=== PATIENT | female | born 1935 | race Caucasian/White ===

== ENCOUNTER → 2020-01-02 10:17 | Outpatient (CLI) | payer MEDICARE, OTHER, SELFPAY | PROVIDERS: Family Provider Family Medicine; PCP Student in an Organized Health Care Education/Training Program; Referring Provider Student in an Organized Health Care Education/Training Program; Visit Provider Student in an Organized Health Care Education/Training Program | DX: M81.0 Age-related osteoporosis without current pathological fracture (principal); Z78.0 Asymptomatic menopausal state; E07.9 Disorder of thyroid, unspecified; K92.9 Disease of digestive system, unspecified; Z90.722 Acquired absence of ovaries, bilateral | CPT/HCPCS: 77080 ==

== ENCOUNTER → 2020-07-24 13:46 | Outpatient (CLI) | payer MEDICARE, OTHER, SELFPAY ==
--- NOTE | 2020-07-24 | DI.MRI.S_ITS ---
PROCEDURE: MR HEAD/BRAIN WO CON INDICATIONS: Other specified diseases of right inner ear TECHNIQUE: Noncontrast axial T1 spin echo, axial T2 fast spin echo, sagittal and axial FLAIR, coronal T2 fast spin echo, axial gradient echo, axial diffusion and ADC through the brain. Thin section, high-resolution axial T1 with fat sat and axial CISS images obtained through the internal auditory canals. COMPARISON: None. FINDINGS: Image quality: Diagnosis sensitivity for vestibular schwannoma diminished secondary to lack of intravenous contrast administration. Intravenous contrast could not be administered due to failure to obtain intravenous access. CSF Spaces: Basal cisterns are patent. No extra-axial fluid collections. Ventricles are normal in size and shape. Brain: No intracranial masses or hemorrhage. Dior/white matter interface is normal. Brainstem appears normal. There is mild, diffuse cerebral volume loss. There are [id number] periventricular and subcortical white matter chronic microvascular ischemic changes. Diffusion-weighted images demonstrate no acute ischemic insult. No areas of encephalomalacia. No abnormal GRE weighted artifact identified in the brain parenchyma. Normal intravascular flow voids are present. No abnormal mass identified in the cerebellar pontine angles or internal auditory canals. Normal fluid signal within the cochlea, semicircular canal and vessels. Skull and face: Calvarium has normal marrow signal. Orbits appear normal. Sinuses: Small mucous retention cyst versus polyp noted in the right maxillary sinus. mastoids are clear. IMPRESSION: 1. No evidence of vestibular schwannoma. Please note study as diminished diagnostic sensitivity for vestibular schwannoma secondary to absence of gadolinium administration. Contrast could not be administered due to an inability to obtain intravenous access. 2. No acute intracranial disease process. 3. No abnormal intracranial mass or mass effect. 4. Mild, diffuse cerebral volume loss. 5. Mild to moderate periventricular and subcortical white matter chronic microvascular ischemic change. Dictated by: Heavenly Worthy MD, PhD on 07/24/2020 at 16:32 Approved by: Heavenly Worthy MD, PhD on 07/24/2020 at 16:38
== END ==
PROVIDERS: Family Provider Family Medicine; PCP Student in an Organized Health Care Education/Training Program; Referring Provider Student in an Organized Health Care Education/Training Program; Visit Provider Otolaryngology
DX: H83.8X1 Other specified diseases of right inner ear (principal)
CPT/HCPCS: 70551

== ENCOUNTER → 2021-04-13 09:48 | Outpatient (CLI) | payer MEDICARE, OTHER, SELFPAY ==
--- NOTE | 2021-04-13 09:49 | DI.US.S_ITS ---
PROCEDURE: US ABD AORTA ANEURYSM SCREEN INDICATIONS: Thoracic aortic aneurysm, without rupture TECHNIQUE: Real time scanning was performed of the aorta and iliac arteries, with image documentation. COMPARISON: [facility], US, ABDOMEN COMPLETE, 07/03/2015, 11:20. [facility], CT, ANGIO CHEST ABDOMEN PELVIS, 03/08/2018, 11:22. FINDINGS: Aorta: Proximal aortic diameter measures 1.9 cm. Mid-aorta measures 1.6 cm. Distal aortic diameter is 1.8 cm. Iliac arteries: Right common iliac artery measures 0.9 cm. Left common iliac artery measures 0.8 cm. IMPRESSION: Negative for abdominal aortic aneurysm. Dictated by: Armando Horan M.D. on 04/13/2021 at 10:21 Approved by: Armando Horan M.D. on 04/13/2021 at 10:23
== END ==
PROVIDERS: PCP Student in an Organized Health Care Education/Training Program; Referring Provider Student in an Organized Health Care Education/Training Program; Visit Provider Student in an Organized Health Care Education/Training Program
DX: I71.2 Thoracic aortic aneurysm, without rupture (principal)
CPT/HCPCS: 76706

== ENCOUNTER → 2022-04-05 13:28 | Outpatient (CLI) | payer MEDICARE, OTHER, SELFPAY ==
--- NOTE | 2022-04-05 13:29 | DI.RAD.S_ITS ---
PROCEDURE: XR LUMBAR SPINE MIN 4V INDICATIONS: BACK PAIN TECHNIQUE: 5 views of the lumbar spine acquired, including flexion and extension views. COMPARISON: [facility], [place], SPINE LUMB MIN 4VW, 04/04/2014, 9:58. FINDINGS: Bones: 5 nonrib-bearing vertebrae are present. Moderate dextroscoliosis centered at the L1-L2 level. 2 mm retrolisthesis L1-L2 and 3 mm retrolisthesis L2-L3. Multilevel disc degeneration, severe at the L2-L3 level. Moderate L4-L5 and L5-S1 facet joint arthropathy. No vertebral body compression fractures. No suspicious bony lesions. Bones are osteopenic Soft tissues: Overlying bowel gas pattern is normal. No suspicious soft tissue calcifications. Cholecystectomy clips. IMPRESSION: Multilevel spondylosis. Dictated by: Cyril Wick RRJuanito Interpreted: Pierre Coleman MD on 04/05/2022 at 16:47 Transcribed by: KAM on 04/05/2022 at 16:50 Approved by: Pierre Coleman M.D. on 04/05/2022 at 17:45
== END ==
PROVIDERS: PCP Student in an Organized Health Care Education/Training Program; Referring Provider Physical Medicine & Rehabilitation; Visit Provider Physical Medicine & Rehabilitation
DX: M47.816 Spondylosis without myelopathy or radiculopathy, lumbar region (principal); M47.817 Spondylosis without myelopathy or radiculopathy, lumbosacral region; M54.9 Dorsalgia, unspecified; M41.20 Other idiopathic scoliosis, site unspecified; Z95.1 Presence of aortocoronary bypass graft
CPT/HCPCS: 72110; 99215

== ENCOUNTER → 2022-04-09 15:50 | Outpatient (CLI) | payer MEDICARE, OTHER, SELFPAY ==
--- NOTE | 2022-04-09 15:52 | DI.MRI.S_ITS ---
PROCEDURE: MR LUMBAR SPINE WO CON INDICATIONS: Scoliosis chronic progressive axial low back pain TECHNIQUE: Noncontrast sagittal T1 spin echo and T2 fast echo, sagittal STIR, and T2 fast spin echo through the lumbar spine. In cases with scoliosis, additional coronal T2 fast spin echo may be performed. COMPARISON: [facility], , L-SPINE WITHOUT CONTRAST, 08/23/2012, 16:55. FINDINGS: Image quality: Excellent. Alignment and Curvature: Convex right lumbar scoliosis has increased compared to the prior in 2012. Minimal retrolisthesis noted at L2-3 Bone Marrow: Degenerative chronic endplate changes noted particularly at L2-3. No acute vertebral body compression fractures. Spinal Cord: Conus medullaris terminates at the L1 level. Visualized cord demonstrates normal signal and size. Paraspinous Soft Tissues: No paravertebral masses. T12-L1: Normal appearance. L1-L2: Mild disc space narrowing and circumferential disc bulge present with mild central stenosis. Moderate left and no right foraminal stenosis. L2-L3: Disc space narrowing with circumferential disc bulge and hypertrophic facet joints results in moderate central stenosis. Severe left and moderate right foraminal stenosis. L3-L4: Disc height is preserved. Circumferential disc bulge and hypertrophic facet joints results in moderate central stenosis. Mild right and moderate left foraminal stenosis. L4-L5: Disc space narrowing with circumferential disc bulge and hypertrophic facet joints results in mild central stenosis. Moderate right and mild left foraminal stenosis L5-S1: Disc height is preserved. No central or foraminal stenosis IMPRESSION: 1. Multilevel degenerative disc disease and arthropathy associated with dextroscoliosis results in varying degrees of central and foraminal stenosis including moderate central stenosis at L2-3 and L3-4 Approved by: Stephane Campbell M.D. on 04/11/2022 at 8:30
== END ==
PROVIDERS: PCP Student in an Organized Health Care Education/Training Program; Referring Provider Physical Medicine & Rehabilitation; Visit Provider Physical Medicine & Rehabilitation
DX: M47.816 Spondylosis without myelopathy or radiculopathy, lumbar region (principal); M51.36 Other intervertebral disc degeneration, lumbar region; M48.061 Spinal stenosis, lumbar region without neurogenic claudication; M41.86 Other forms of scoliosis, lumbar region
CPT/HCPCS: 72148

== ENCOUNTER → 2022-04-26 11:13 | Outpatient (CLI) | payer MEDICARE, OTHER, SELFPAY ==
[2022-04-26 13:19] LABS: COVID19 -Nasal RAPID Negative (Negative)
== END ==
PROVIDERS: PCP Student in an Organized Health Care Education/Training Program; Visit Provider Physical Medicine & Rehabilitation
DX: Z20.822 Contact with and (suspected) exposure to COVID-19 (principal)
CPT/HCPCS: 87635; C9803

== ENCOUNTER 2022-04-27 12:09 | Outpatient (CLI) | payer MEDICARE, OTHER, SELFPAY ==
[2022-04-27] VITALS (10 sets, daily range): BP systolic 143–228; BP diastolic 74–104; PULSE 65–80; RESP 13–25; TEMP 36.4; O2SAT 93–98
--- NOTE | 2022-04-27 12:12 | DI.RAD.S_ITS ---
PROCEDURE: PAIN L/S FACET INJ/BLK 1ST MAHENDRA COMPARISON: None. INDICATIONS: SPONDYLOSIS FINDINGS: Intraoperative fluoroscopic views of facet joint injection. IMPRESSION: Facet joint injection at L4-5 and L5-S1 bilaterally. Dictated by: Ronan Hayes M.D. on 04/27/2022 at 15:28 Approved by: Ronan Hayes M.D. on 04/27/2022 at 15:29
[2022-04-27] MEDS: MIDAZOLAM 2 MG/2 ML VIAL IV (13:23)
[2022-04-27] MEDS: IOPAMIDOL 15 ML VIAL 3 ML INJ (13:29)
[2022-04-27] MEDS: BUPIVACAINE 0.5% (PF) VIAL 2 ML INJ (13:30)
[2022-04-27] MEDS: BETAMETHASONE 30 MG/5 ML MDV 12 MG INJ (13:30)
[2022-04-27] MEDS: LIDOCAINE 1% 20 ML INJ (13:30)
--- NOTE | 2022-04-27 13:44 | P.PCN_ITS ---
Date/Time/Diagnoses Date of procedure: 04/27/22 Time of procedure: 13:44 Pre-procedure diagnosis: 1. FACET ARTHROPATHY 2. AXIAL LBP 3. MULTILEVEL DDD Post-procedure diagnosis: same Procedure Notes Procedure: 1. FLUOROSCOPICALLY GUIDED CONTRAST CONTROLLED FACET JOINT INJECTIONS BILATERAL L4/5, L5/S1 Indications: Mercedes is referred by Dr. Ribera for treatment of Axial LBP Physician: Molina Schroeder Total Fluoroscopy time (seconds): 15 Total sedation minutes: 16 Complications: none Procedure in detail & Post-procedure care: FINDINGS Multilevel Facet Arthropathy with Clinically significant axial LBP DESCRIPTION OF PROCEDURE Fluoroscopically guided, contrast-controlled bilateral L4/5, L5/S1 facet joint injections. Following review of allergy and review of potential side effects and complications, including, but not necessarily limited to, infection, allergic reaction, local tissue breakdown, stroke, temporary or permanent nerve injury, paralysis, and possible , the patient indicated that the patient understood and agreed to proceed. An informed consent document was signed by the patient, witnessed by a nurse, and placed in the patient's chart. Additionally, other treatment options including medications, modalities, and physical therapy were reviewed with the patient. After review of previous anaesthesic history and IV conscious sedation the patient was deemed safe to proceed with today?s procedure with IV conscious sedation as ASA class II designation. Safety time-out was performed to confirm patient ID, procedure to be performed and site of procedure. IV sedation was accomplished with a combination of 2mg of Versed was administered by the RN after DO order, titrated to patient comfort during the course of the procedure while the patient remained responsive to all verbal commands In the prone position, following sterile prep and drape of the lumbar region, the posterior aspect of the L4/5, L5/S1 facet joints were identified fluoroscopically. The skin was anesthetized via a 25-gauge 1.5inch needle with 1% lidocaine solution into the corresponding facet joints. At this point, a 22- gauge 3.5-inch spinal needle was atraumatically introduced and advanced under fluoroscopic guidance into the corresponding facet joints. Following negative aspiration, injections of approximately 0.2cc of Isovue 200 confirmed interarticular placement without vascular uptake. The identical procedure was then performed at the L4/5, L5/S1 facet joints on the left. Radiological data, including multiple fluoroscopic views of the lumbosacral spine, reveal a spinal needle at the L4/5, L5/S1 facet joints bilaterally. Subsequent views show flow of contrast material both superiorly and inferiorly within the joint space without vascular or intrathecal uptake. At this point, a total of 0.5cc including a mixture of 0.25cc Marcaine and 0.25cc betamethasone was injected without complication into each of the corresponding facet joints. The patient tolerated the procedure well without signs or symptoms of complications prior to transfer to the recovery area continued monitoring without incident. The patient was then transferred to the recovery area where they were observed for an appropriate period of time after the injection. The patient reported a VAS score of 7 prior to the procedure and a post- procedure VAS of 0. POST OP INSTRUCTIONS The patient was provided a Pain Log to continue to record their response to the target-specific procedure prior to follow-up visit with their referring physician. Additionally, specific post-injection care instructions and a contact number to our office were provided if concerns arise regarding possible complications associated with the procedure are suspected.
== END 2022-04-27 14:10 | disposition home or self-care (01) ==
LOC: RAD 12:11
PROVIDERS: PCP Student in an Organized Health Care Education/Training Program; Referring Provider Physical Medicine & Rehabilitation; Visit Provider Physical Medicine & Rehabilitation
DX: M47.816 Spondylosis without myelopathy or radiculopathy, lumbar region (principal); M47.817 Spondylosis without myelopathy or radiculopathy, lumbosacral region; M51.36 Other intervertebral disc degeneration, lumbar region; M51.37 Other intervertebral disc degeneration, lumbosacral region
CPT/HCPCS: 64493; 64494; 99152; J0702; J2250

== ENCOUNTER → 2022-04-29 10:00 | Outpatient (CLI) | payer MEDICARE, OTHER, SELFPAY ==
--- NOTE | 2022-04-29 | DI.NM.S_ITS ---
PROCEDURE: NM ADRIANA PERF SPECT R&S PHARM Rest and pharmacological stress myocardial perfusion SPECT with gated imaging and ejection fraction RADIOPHARMACEUTICAL: 25.3 mCi Tc-99m tetrafosmin IV at rest and 25.3 mCi Tc-99m tetrafosmin IV at peak effect of pharmacological stress. [id number] was performed. INDICATIONS: Occlusion and stenosis of bilateral carotid artery TECHNIQUE: Radiopharmaceutical was injected at peak stress test, and also at rest. SPECT images were obtained. SPECT myocardial perfusion images were displayed in short axis, horizontal long axis, and vertical long axis views. Gated images were reviewed using [employer] software. COMPARISON: None. CARDIAC STRESS: A pharmacologic stress test was performed under the supervision of an attending staff, using an infusion of regadenoson. Hemodynamic data: There is normal blood pressure and heart rate response to pharmacologic stress. Symptoms: The patient denied anginal chest pain. EKG: No diagnostic changes of ischemia; no ectopy. FINDINGS: Raw data: There is good myocardial uptake of radiotracer. No significant motion artifacts. Hikk-kf-ijwzx ratio is 0.39 (normal is less than 0.38 for tetrafosmin tracer). Left ventricle function: Gated images demonstrate normal left ventricular wall thickening. No segmental wall motion abnormalities. No transient ischemic dilation; TID is 0.88 (normal less than 1.3). Left ventricle resting end diastolic volume is 55 mL. Left ventricle stress ejection fraction is >75%; normal range is above 45%. Myocardial perfusion: There is normal distribution of activity in the right and left ventricular myocardium. No fixed or reversible perfusion defects. IMPRESSION: No evidence of pharmacologic induced ischemia or scar. Hyperdynamic left ventricular function. Compared to prior study dated 06/03/2010, no significant change in perfusion imaging. Dictated by: Hiwot Mejía D.O. on 04/30/2022 at 17:43 Approved by: Hiwot Mejía D.O. on 04/30/2022 at 17:46
--- NOTE | 2022-04-30 11:50 | PM.TREADMILL ---
Cardiac Stress Test Report Referral & Results Date Patient Seen: 04/30/22 Time Patient Seen: 11:50 Requesting provider: Erick Lomeli Indication: Carotid artery disease, Coronary artery disease Rest ECG: Sinus bradycardia, Procedure Note: After Lexiscan injection had minimal dyspnea, no chest discomfort After Lexiscan injection, no significant ST changes No ectopy Impression: Normal Lexiscan stress test Nuclear images pending Please note: Actual ECG tracings can be found in the PACS system.
== END ==
PROVIDERS: PCP Student in an Organized Health Care Education/Training Program; Referring Provider Internal Medicine Cardiovascular Disease; Visit Provider Internal Medicine Cardiovascular Disease
DX: I65.23 Occlusion and stenosis of bilateral carotid arteries (principal); I25.10 Atherosclerotic heart disease of native coronary artery without angina pectoris
CPT/HCPCS: 78452; 93017; A9502; J2785

== ENCOUNTER 2022-05-23 17:48 | Observation (INO) | payer MEDICARE, OTHER, SELFPAY ==
[2022-05-23] VITALS (17 sets, daily range): BP systolic 155–229; BP diastolic 74–142; PULSE 63–81; RESP 12–38; TEMP 36.4–36.8; O2SAT 93–94; BMI 27.6; BMI 26.5
--- NOTE | 2022-05-23 17:51 | DI.RAD.S_ITS ---
PROCEDURE: XR CHEST 1V INDICATIONS: chest pain TECHNIQUE: One view of the chest was acquired. COMPARISON: [facility], , CHEST 2 VIEW, 12/19/2014, 10:31. FINDINGS: Surgical changes and devices: Median sternotomy wires are present and appear intact. Stable postsurgical changes of the mediastinum.Surgical clips in right upper quadrant compatible with prior cholecystectomy. Lungs and pleura: Lungs are clear. No pleural effusions or pneumothorax. Mediastinum: Mediastinal contours appear normal. Heart size is normal. Atherosclerotic calcifications of the aortic arch are present. Bones and chest wall: No suspicious bony lesions. Overlying soft tissues appear unremarkable. IMPRESSION: Stable radiographic evaluation of the chest without acute cardiopulmonary abnormalities or focal airspace disease. Dictated by: Melvin Humphries M.D. on 05/23/2022 at 18:37 Approved by: Melvin Humphries M.D. on 05/23/2022 at 18:41
[2022-05-23] MEDS: SODIUM CHLORIDE 0.9% 1,000 ML 150 ML IV (18:25)
[2022-05-23 18:29] LABS: Add Manual Diff / Slide Review NO; Basophils Absolute Auto 100 /uL (0-100); Basophils Percent Auto 0.6 % (0-2); Eosinophils Absolute Auto 200 /uL (0-450); Eosinophils Percent Auto 2.3 % (2-4); Hematocrit 39.2 % (36-46); Hemoglobin 13.4 g/dL (12.0-16.0); Lymphocytes Absolute Auto 2200 /uL (1100-4500); Mean Corpuscular HGB Conc 34.1 % (30-36); Mean Corpuscular Hemoglobin 31.2 PG (26-34); Mean Corpuscular Volume 91.7 fL (80-100); Monocytes Absolute Auto 800 /uL (0-900); Monocytes Percent Auto 8.8 % (3-14); Neutrophils Absolute Auto 5400 /uL (1500-7000); Neutrophils Percent Auto 62.3 % (50-75); Platelet Count 219 X10^3/uL (150-400); Red Blood Cell Count 4.28 X10^6/uL (4.0-5.2); Red Cell Distribution Width 15.5 % (11.6-14.8); White Blood Cell Count 8.6 X10^3/uL (4.5-11.0)
--- NOTE | 2022-05-23 18:34 | ED_ITS ---
HPI - Chest Pain General Chief Complaint: Chest Pain Stated Complaint: High BP Chest Pain Time Seen by Provider: 05/23/22 17:50 Source: patient Mode of arrival: Family Vehicle Limitations: no limitations History of Present Illness HPI narrative: 86-year-old female with history of coronary artery disease, status post 4 way bypass 21 years ago, coronary artery disease, hypertension, hyperlipidemia presents with family in the chief complaint of retrosternal chest pressure for the past 2 hours. She noted her blood pressure to be over 200. Patient had stress test a few weeks ago after having abnormal carotids noted, stress test showed EF greater than 75% without evidence of pharmacologic induced ischemia or scar. No car changer prior from May of 2010. She admits to some retrosternal chest pain that started while at rest last a few hours this morning but then resolved and had another episode just prior to her arrival. She denies any radiation or obvious provocation or palliation of her symptoms. She denies dizziness, weakness or lightheadedness. She has no blurred vision or trouble with speech. She denies any change in her meds or diet. Related Data Home Medications Medication Instructions Recorded Confirmed ACETAMINOPHEN (TYLENOL EXTRA 1,500 mg PO Q4HP PRN Pain (Scale 09/15/12 05/23/22 STRENGTH) Score 4-6) ##0 aspirin 81 mg tablet,delayed 81 mg PO DAILY 04/05/22 05/23/22 release (Adult Low Dose Aspirin) atorvastatin 40 mg tablet 40 mg PO BEDTIME 04/05/22 05/23/22 cholecalciferol (vitamin D3) 50 50 mcg PO DAILY 04/05/22 05/23/22 mcg (2,000 unit) capsule clobetasol 0.05 % topical cream 1 applic topical DAILY 04/05/22 05/23/22 clopidogrel 75 mg tablet (Plavix) 75 mg PO DAILY 04/05/22 05/23/22 gabapentin 400 mg capsule 1,200 mg PO BEDTIME 04/05/22 05/23/22 melatonin 5 mg capsule 5 mg PO .PRN PRN Sleep 04/05/22 05/23/22 metformin 500 mg tablet 500 mg PO DAILY 04/05/22 05/23/22 nitroglycerin 0.4 mg sublingual 0.4 mg sublingual Q5M PRN Angina 04/05/22 05/23/22 tablet omeprazole 40 mg capsule,delayed 40 mg PO DAILY 04/05/22 05/23/22 release carvedilol 12.5 mg tablet 12.5 mg PO BID 05/23/22 05/23/22 levothyroxine 88 mcg tablet 88 mcg PO DAILY 05/23/22 05/23/22 Previous Rx's Medication Instructions Recorded lisinopril 20 mg tablet 20 mg PO BID #60 tabs 05/24/22 Allergies Allergy/AdvReac Type Severity Reaction Status Date / Time No Known Drug Allergies Allergy Verified 05/27/22 21:18 Review of Systems Review of Systems Narrative: GENERAL: Denies chills, fatigue, malaise, fever, sweats. HEENT: Denies sinus pain, ear pain, sore throat, difficulty swallowing, dizziness. RESPIRATORY: Denies dyspnea, cough, wheezing, hemoptysis, sputum. CARDIOVASCULAR: See HPI GASTROINTESTINAL: Denies nausea, vomiting, abdominal pain, diarrhea, constipation, melena. : Denies dysuria, frequency, incontinence, hematuria, urinary retention. MUSCULOSKELETAL: denies weakness, joint pain, or bony pain SKIN: Denies rash, skin lesions, or other NEUROLOGIC: Denies weakness, headache, numbness, change in speech, confusion, seizures, incoordination. PSYCHIATRIC: No concerning psychosocial issues. 12 point review of systems is negative except for those stated above Patient History Medical History CAD (coronary artery disease) Diabetes Facet arthropathy, lumbar HTN (hypertension) Hypothyroidism Scoliosis (and kyphoscoliosis), idiopathic Surgical History S/P CABG x 4 Family History Mother Emphysema lung Grandfather Lymphoma Heart attack Social History household members: children Smoking Status: Former smoker alcohol intake: current Smoking Status: Former smoker tobacco type: cigarettes alcohol intake frequency: 0-2 drinks per day Substance Use Type: does not use Exam Narrative Exam Narrative: GENERAL: 86[] year old patient appears stated age. Well-developed patient, in mild distress. HEAD: Atraumatic. Normocephalic. EYES: Pupils equal round and reactive. Extraocular motions intact. No scleral icterus. No injection or drainage. ENT: Nose without bleeding, purulent drainage. Throat without erythema, tonsillar hypertrophy or exudate. Airway patent. NECK: Trachea midline. Non tender CARDIOVASCULAR: Regular rate and rhythm without murmurs, gallops, or rubs. RESPIRATORY: Clear to auscultation. Breath sounds equal bilaterally. No wheezes, rales, or rhonchi. GASTROINTESTINAL: Abdomen soft, non-tender, nondistended. EXTREMITIES: No edema or joint tenderness. BACK: Nontender without deformity or crepitance. No flank tenderness. NEURO: AOx3. SKIN: No rash or erythema of visible areas Initial Vital Signs Initial Vital Signs: Vital Signs Temperature 98.2 F 05/23/22 17:57 Pulse Rate 81 05/23/22 17:57 Respiratory Rate 05/23/22 17:57 Blood Pressure 213/89 H 05/23/22 17:57 Oxygen Delivery Method 05/23/22 17:57 Scores HEART Score Heart Score history: Moderately Suspicious Heart Score EKG: Non-Specific repolarization disturbance Heart Score Age: > or = 65 years old Heart Score risk factors: > 3 risk factors or hx of atherosclerotic disease Heart Score troponin: < or = to normal limit Heart Score Total: 6 Course Orders Ordered: Discontinued Medications Acetaminophen (Acetaminophen 325 Mg Tablet) 650 mg PO Q6HR PRN PRN Reason: Fever/Mild Pain (1-3) Atorvastatin Calcium (Atorvastatin 20 Mg Tablet) 40 mg PO BEDTIME [facility] Last Admin: 05/23/22 23:40 Dose: 40 mg Documented By: JUAN Carvedilol (Carvedilol 12.5 Mg Tablet) 12.5 mg PO NOW ONE Stop: 05/23/22 19:13 Last Admin: 05/23/22 19:27 Dose: 12.5 mg Documented By: CARLY Carvedilol (Carvedilol 12.5 Mg Tablet) 12.5 mg PO BID [facility] Last Admin: 05/24/22 09:38 Dose: 12.5 mg Documented By: Admin: 05/23/22 23:40 Dose: 12.5 mg Documented By: JUAN Enoxaparin Sodium (Enoxaparin 40 Mg/0.4 Ml Syringe) 40 mg SUBCUT DAILY [facility] Last Admin: 05/24/22 09:38 Dose: Not Given Documented By: AUSTIN Gabapentin (Gabapentin 600 Mg Tablet) 1,200 mg PO BEDTIME [facility] Last Admin: 05/23/22 23:40 Dose: 1,200 mg Documented By: JUAN Sodium Chloride (Normal Saline 0.9%) 1,000 mls @ 150 mls/hr IV CONT [facility] Last Infusion: 05/23/22 22:34 Dose: 0 mls/hr Documented By: Admin: 05/23/22 18:25 Dose: 150 mls/hr Documented By: CARLY Lisinopril (Lisinopril 20 Mg Tablet) 20 mg PO PRN PRN PRN Reason: Blood Pressure - High Lisinopril (Lisinopril 20 Mg Tablet) 20 mg PO DAILY PRN PRN Reason: Hypertension Melatonin (Melatonin 3 Mg Tablet) 6 mg PO BEDTIME [facility] Last Admin: 05/23/22 23:40 Dose: 6 mg Documented By: JUAN Nitroglycerin (Nitroglycerin 0.4 Mg Sl Tab) 0.4 mg SL NOW ONE Stop: 05/23/22 21:51 Last Admin: 05/23/22 21:58 Dose: 0.4 mg Documented By: CARLY Sodium Chloride (Sodium Chloride 0.9% Flush) 10 ml IV PRN PRN PRN Reason: Flush Sodium Chloride (Sodium Chloride 0.9% Flush) 10 ml IV BID [facility] Last Admin: 05/24/22 09:38 Dose: Not Given Documented By: AUSTIN Vital Signs Vital signs: Vital Signs - 8 hr 05/23/22 18:15 05/23/22 18:15 05/23/22 18:30 Pulse Rate 79 Respiratory Rate 29 H Blood Pressure 229/114 H 223/109 H Pulse Oximetry 94 Oxygen Delivery Method 05/23/22 18:30 05/23/22 18:52 05/23/22 18:52 Pulse Rate 79 76 Respiratory Rate 16 Blood Pressure 225/102 H Pulse Oximetry 93 93 Oxygen Delivery Method 05/23/22 19:00 05/23/22 19:00 05/23/22 19:30 Pulse Rate 68 71 Respiratory Rate 22 24 Blood Pressure 213/89 H Pulse Oximetry 93 93 Oxygen Delivery Method 05/23/22 19:31 05/23/22 19:31 05/23/22 20:00 Pulse Rate 66 Respiratory Rate 20 Blood Pressure 210/142 H 216/97 H Pulse Oximetry 93 Oxygen Delivery Method 05/23/22 20:00 05/23/22 20:30 05/23/22 21:00 Pulse Rate 68 63 67 Respiratory Rate 38 H 21 12 Blood Pressure Pulse Oximetry 94 94 94 Oxygen Delivery Method Room Air 05/23/22 21:47 05/23/22 21:48 05/23/22 21:48 Pulse Rate 65 63 Respiratory Rate 15 16 Blood Pressure 222/96 H Pulse Oximetry Oxygen Delivery Method 05/23/22 22:00 05/23/22 22:00 Pulse Rate 72 Respiratory Rate 15 Blood Pressure 192/91 H Pulse Oximetry Oxygen Delivery Method MDM - Chest Pain Lab Data Result diagrams: 05/23/22 18:19 05/23/22 18:19 Labs: Lab Results 05/23/22 05/23/22 05/23/22 Range/Units 18:19 18:19 18:19 WBC 8.6 (4.5-11.0) X10^3/uL RBC 4.28 (4.0-5.2) X10^6/uL Hgb 13.4 (12.0-16.0) g/dL Hct 39.2 (36-46) % MCV 91.7 (80-100) fL MCH 31.2 (26-34) PG MCHC 34.1 (30-36) % RDW 15.5 H (11.6-14.8) % Plt Count 219 (150-400) X10^3/uL Neut % (Auto) 62.3 (50-75) % Lymph % (Auto) 26.0 (25-40) % [place] % (Auto) 8.8 (3-14) % Eos % (Auto) 2.3 (2-4) % Baso % (Auto) 0.6 (0-2) % Neut # (Auto) 5400 (4899-9880) /uL Lymph # (Auto) 2200 (5271-9287) /uL [place] # (Auto) 800 (0-900) /uL Eos # (Auto) 200 (0-450) /uL Baso # (Auto) 100 (0-100) /uL Sodium 137 (137-145) mmol/L Potassium 4.7 (3.4-5.1) mmol/L Chloride 103 (98-107) mmol/L Carbon Dioxide 28 (22-32) mmol/L BUN 12 (7-17) mg/dL Creatinine 0.70 (0.52-1.04) mg/dL Estimated GFR > 60 (>60) mL/min BUN/Creatinine Ratio 17.1 (6-22) Glucose 95 (80-110) mg/dL Calcium 9.1 (8.4-10.2) mg/dL Total Bilirubin 1.3 (0.2-1.3) mg/dL AST 31 (14-36) IU/L ALT 14 (<35) IU/L Alkaline Phosphatase 99 (38-126) U/L Total Creatine Kinase 39 (30-135) U/L CK-MB (CK-2) TNP CK-MB (CK-2) Rel Index TNP Troponin I < 0.012 (0.01-0.034) ng/mL NT-Pro-B Natriuret Pep 471 H (<450) pg/mL Total Protein 6.9 (6.3-8.2) g/dL Albumin 4.0 (3.5-5.0) g/dL Globulin 2.9 (1.7-4.1) g/dL Albumin/Globulin Ratio 1.4 (1.0-2.8) Lipase 108 (23-300) U/L Procalcitonin 0.04 (<0.5) ng/mL SARS-CoV-2 (PCR) (Negative) 05/23/22 05/23/22 Range/Units 20:35 21:47 WBC (4.5-11.0) X10^3/uL RBC (4.0-5.2) X10^6/uL Hgb (12.0-16.0) g/dL Hct (36-46) % MCV (80-100) fL MCH (26-34) PG MCHC (30-36) % RDW (11.6-14.8) % Plt Count (150-400) X10^3/uL Neut % (Auto) (50-75) % Lymph % (Auto) (25-40) % [place] % (Auto) (3-14) % Eos % (Auto) (2-4) % Baso % (Auto) (0-2) % Neut # (Auto) (6749-0917) /uL Lymph # (Auto) (2628-0713) /uL [place] # (Auto) (0-900) /uL Eos # (Auto) (0-450) /uL Baso # (Auto) (0-100) /uL Sodium (137-145) mmol/L Potassium (3.4-5.1) mmol/L Chloride (98-107) mmol/L Carbon Dioxide (22-32) mmol/L BUN (7-17) mg/dL Creatinine (0.52-1.04) mg/dL Estimated GFR (>60) mL/min BUN/Creatinine Ratio (6-22) Glucose (80-110) mg/dL Calcium (8.4-10.2) mg/dL Total Bilirubin (0.2-1.3) mg/dL AST (14-36) IU/L ALT (<35) IU/L Alkaline Phosphatase (38-126) U/L Total Creatine Kinase 41 (30-135) U/L CK-MB (CK-2) TNP CK-MB (CK-2) Rel Index TNP Troponin I 0.033 (0.01-0.034) ng/mL NT-Pro-B Natriuret Pep (<450) pg/mL Total Protein (6.3-8.2) g/dL Albumin (3.5-5.0) g/dL Globulin (1.7-4.1) g/dL Albumin/Globulin Ratio (1.0-2.8) Lipase (23-300) U/L Procalcitonin (<0.5) ng/mL SARS-CoV-2 (PCR) Negative (Negative) Imaging Data Chest x-ray: Radiologist's Impression: [address] [address] XRay Report Signed Patient: Mercedes Sanders MR#: [id number] : 1935 Acct:[id number] Age/Sex: 86 / F Date of Service: 05/23/22 Loc: ED Accession Number: [id number] ?? Procedure: XR chest 1V Ordering Provider: Mark Lynne D.O. PROCEDURE:? XR CHEST 1V ? INDICATIONS:? chest pain ? TECHNIQUE:? One view of the chest was acquired.? ? COMPARISON:? [facility], , CHEST 2 VIEW, 12/19/2014, 10:31. ? FINDINGS:? ? Surgical changes and devices: ? Median sternotomy wires are present and appear i ntact.? Stable postsurgical changes of the mediastinum.Surgical clips in right upper quadrant compatible with prior cholecystectomy. ? Lungs and pleura:? Lungs are clear.? No pleural effusions or pneumothorax.? ? Mediastinum:? Mediastinal contours appear normal.? Heart size is normal.? Atherosclerotic calcifications of the aortic arch are present. ? Bones and chest wall:? No suspicious bony lesions.? Overlying soft tissues appear unremarkable.? ? IMPRESSION:? Stable radiographic evaluation of the chest without acute cardiopulmonary abnormalities or focal airspace disease. ? ? ? Dictated by: Melvin Humphries M.D. on 05/23/2022 at 18:37 ? ? Approved by: Melvin Humphries M.D. on 05/23/2022 at 18:41 ? MDM Narrative Medical decision making narrative: Patient with known cardiac history presents with a few episodes of retrosternal chest pressure without obvious provocation, palliation or radiation. The 2nd episode was just prior to her arrival and though she was essentially symptom free for the duration of her visit, repeat troponin has subtly increased, her heart score is 6 and she is inappropriate for DC, she will need hospitalization for trending of enzymes and stablilization of her condition Discharge Plan Departure Patient Disposition: Admitted as Observation Clinical Impression: Chest pain Admit Date/Time: 05/23/22 22:43 Admit Provider: Tha Renee
[2022-05-23 18:43] LABS: Alanine Aminotransferase 14 IU/L (<35); Albumin Globulin Ratio 1.4 (1.0-2.8); Alkaline Phosphatase 99 U/L (38-126); Aspartate Aminotransferase 31 IU/L (14-36); BUN Creatinine Ratio 17.1 (6-22); Bilirubin Total 1.3 mg/dL (0.2-1.3); Blood Urea Nitrogen 12 mg/dL (7-17); Calcium 9.1 mg/dL (8.4-10.2); Carbon Dioxide 28 mmol/L (22-32); Chloride 103 mmol/L (98-107); Creatine Kinase 39 U/L (30-135); Estimated Glomerular Filt Rate > 60 mL/min (>60); Globulin 2.9 g/dL (1.7-4.1); Glucose 95 mg/dL (80-110); HEMOLYSIS 44 (0-50); Lipase 108 U/L (23-300); Potassium 4.7 mmol/L (3.4-5.1); Sodium 137 mmol/L (137-145); Total Protein 6.9 g/dL (6.3-8.2)
[2022-05-23 18:55] LABS: NT-proBNP (BNP-Adult 18+) 471 pg/mL (<450); Troponin I < 0.012 ng/mL (0.01-0.034)
[2022-05-23 18:59] LABS: Procalcitonin 0.04 ng/mL (<0.5)
[2022-05-23] MEDS: carvediloL 12.5 MG TABLET PO ×2 (19:27→23:40)
[2022-05-23 20:53] LABS: Creatine Kinase 41 U/L (30-135)
[2022-05-23 21:06] LABS: Troponin I 0.033 ng/mL (0.01-0.034)
[2022-05-23] MEDS: NITROGLYCERIN 0.4 MG SL TAB SL (21:58)
[2022-05-23 22:14] LABS: COVID19 -Nasal RAPID Negative (Negative)
--- NOTE | 2022-05-23 23:27 | PC.ADMIT ---
Addendum entered by Sneha Romano R.N. 05/23/22 23:34: Fall risk score is moderate and bed alarm is activated. Original Note: [id number] View [address] Admission Note: The patient,Mercedes Sanders,86 y/o, was given written information regarding hospital policies, unit procedures and contact persons. Patient's smoking status: Former smoker. Vital Signs - 8 hr 05/23/22 17:57 05/23/22 18:01 05/23/22 18:05 Temperature 98.2 F Pulse Rate 81 80 81 Respiratory Rate 22 31 H 31 H Blood Pressure 213/89 H Pulse Oximetry 94 93 Oxygen Delivery Method Room Air 05/23/22 18:05 05/23/22 18:15 05/23/22 18:15 Temperature Pulse Rate 79 Respiratory Rate 29 H Blood Pressure 213/129 H 229/114 H Pulse Oximetry 94 Oxygen Delivery Method 05/23/22 18:30 05/23/22 18:30 05/23/22 18:52 Temperature Pulse Rate 79 76 Respiratory Rate 16 Blood Pressure 223/109 H Pulse Oximetry 93 93 Oxygen Delivery Method 05/23/22 18:52 05/23/22 19:00 05/23/22 19:00 Temperature Pulse Rate 68 Respiratory Rate 22 Blood Pressure 225/102 H 213/89 H Pulse Oximetry 93 Oxygen Delivery Method 05/23/22 19:30 05/23/22 19:31 05/23/22 19:31 Temperature Pulse Rate 71 66 Respiratory Rate 24 20 Blood Pressure 210/142 H Pulse Oximetry 93 93 Oxygen Delivery Method 05/23/22 20:00 05/23/22 20:00 05/23/22 20:30 Temperature Pulse Rate 68 63 Respiratory Rate 38 H 21 Blood Pressure 216/97 H Pulse Oximetry 94 94 Oxygen Delivery Method 05/23/22 21:00 05/23/22 21:47 05/23/22 21:48 Temperature Pulse Rate 67 65 63 Respiratory Rate 12 15 16 Blood Pressure Pulse Oximetry 94 Oxygen Delivery Method Room Air 05/23/22 21:48 05/23/22 22:00 05/23/22 22:00 Temperature Pulse Rate 72 Respiratory Rate 15 Blood Pressure 222/96 H 192/91 H Pulse Oximetry Oxygen Delivery Method 05/23/22 22:49 05/23/22 23:24 Temperature 97.5 F L Pulse Rate 65 Respiratory Rate 17 Blood Pressure 178/86 H Pulse Oximetry 94 Oxygen Delivery Method Room Air Patient admitted to room 216 at 2257 from ER. Is alert and oriented. Breath sounds CTA with RA sat of 94%. HRR w/telemetry reading of SR. BP elevated at 178/84 which is improved from earlier readings in ER. Denies any chest pain and/or SOB. Denies nausea. States she had multiple stools today which is her normal as has IBS. Denies any dysuria but states she does have urinary urgency. Is able to move herself in bed. Denies weakness or dizziness but states she sits at edge of bed before standing to get up; instructed to call for assistance while in hospital and verbalizes understanding. Fall risk score is low. Oriented to bed controls and call light use.
[2022-05-23] MEDS: GABAPENTIN 600 MG TABLET 1200 MG PO (23:40)
[2022-05-23] MEDS: ATORVASTATIN 20 MG TABLET 40 MG PO (23:40)
[2022-05-23] MEDS: MELATONIN 3 MG TABLET 6 MG PO (23:40)
[2022-05-24 02:16] VITALS: BP 142/73; PULSE 63; RESP 17; TEMP 36.4; O2SAT 92
[2022-05-24 03:21] LABS: Troponin I 0.045 ng/mL (0.01-0.034)
[2022-05-24 05:58] VITALS: BP 158/81; PULSE 63; RESP 17; TEMP 36.4; O2SAT 94
[2022-05-24 07:45] VITALS: BP 149/69; PULSE 62; RESP 16; TEMP 36.1; O2SAT 93
--- NOTE | 2022-05-24 08:03 | PM.HP.1 ---
History of Present Illness History of Present Illness Date Patient Seen: 05/24/22 Time Patient Seen: 08:03 Chief complaint: High BP Chest Pain Narrative: 86-year-old female history of coronary artery disease hypertension hyperlipidemia diabetes hypothyroidism patient says that over the last 2-3 weeks he has had pretty significant high blood pressure. Up into the 200s. She has just been ignoring it could she does not feel too bad with it. She has also had some episodes of low blood pressure but that was quite sometime ago. Yesterday afternoon she began to have some chest tightness. It lasted for just a few minutes and then went away and then it happened again. At that point she became concerned and came to the emergency room. Chest tightness was retrosternal was not associated with nausea dizziness palpitations or lightheadedness. She says that she has been meeting with her emergency veterinary technician regularly she underwent cardiac bypass surgery a number of years ago. Her emergency veterinary technician Dr. Slick pantoja. Recently had a stress test not because she was having any chest pain just because it been many years since she had had any evaluation and also they found some concerns about carotid artery stenosis. She is still undergoing that workup. Her stress test results are in the computer read as normal. This morning patient is feeling better. Patient's blood pressure in the emergency room was 225 over 114 and 219/110. Patient was restarted on her blood pressure medication last evening. We added an additional lisinopril her blood pressure this morning is 150/881. Patient has no further episodes of chest discomfort since arrival to the emergency department. I have reviewed her recent laboratory tests medications and past medical history. Her 1st set of cardiac enzymes x2 was negative. Her next set came back mildly elevated. Patient History Medical History CAD (coronary artery disease) Diabetes Facet arthropathy, lumbar HTN (hypertension) Hypothyroidism Scoliosis (and kyphoscoliosis), idiopathic Surgical History S/P CABG x 4 Family & Social History Family History Mother Emphysema lung Grandfather Lymphoma Heart attack Social History: household members children Prior Living Arrangements House Safety & Behavioral: Feels Safe in Current Yes Environment Been Physically Hurt or No Threatened By a Person Tobacco & Substance use: Smoking Status Former smoker alcohol intake current alcohol intake frequency 0-2 drinks per day Substance Use Type does not use Meds Home Medications and Allergies Home Medications Medication Instructions Recorded Confirmed Type ACETAMINOPHEN (TYLENOL EXTRA 1,500 mg PO Q4HP PRN Pain (Scale 09/15/12 05/23/22 History STRENGTH) Score 4-6) ##0 aspirin 81 mg tablet,delayed 81 mg PO DAILY 04/05/22 05/23/22 History release (Adult Low Dose Aspirin) atorvastatin 40 mg tablet 40 mg PO BEDTIME 04/05/22 05/23/22 History cholecalciferol (vitamin D3) 50 50 mcg PO DAILY 04/05/22 05/23/22 History mcg (2,000 unit) capsule clobetasol 0.05 % topical cream 1 applic topical DAILY 04/05/22 05/23/22 History clopidogrel 75 mg tablet (Plavix) 75 mg PO DAILY 04/05/22 05/23/22 History gabapentin 400 mg capsule 1,200 mg PO BEDTIME 04/05/22 05/23/22 History melatonin 5 mg capsule 5 mg PO .PRN PRN Sleep 04/05/22 05/23/22 History metformin 500 mg tablet 500 mg PO DAILY 04/05/22 05/23/22 History nitroglycerin 0.4 mg sublingual 0.4 mg sublingual Q5M PRN Angina 04/05/22 05/23/22 History tablet omeprazole 40 mg capsule,delayed 40 mg PO DAILY 04/05/22 05/23/22 History release carvedilol 12.5 mg tablet 12.5 mg PO BID 05/23/22 05/23/22 History levothyroxine 88 mcg tablet 88 mcg PO DAILY 05/23/22 05/23/22 History Allergies Allergy/AdvReac Type Severity Reaction Status Date / Time No Known Drug Allergies Allergy Unverified 04/05/22 14:38 Exam Vital Signs (past 8 hours): - 05/24/22 02:16 05/24/22 05:58 Temperature 97.5 F L 97.6 F Pulse Rate 63 63 Respiratory Rate 17 17 Blood Pressure 142/73 H 158/81 H Pulse Oximetry 92 94 Oxygen Delivery Method Room Air Narrative Exam Narrative: Gen.: Alert and oriented x3 no apparent distress. HEENT: NCAT PERRLA tympanic membranes are clear nares are patent oral mucosa is moist no tonsillar hypertrophy neck is supple without lymphadenopathy no thyroid enlargement. Cardio: S1-S2 regular rate and rhythm no murmurs appreciated. Respiratory: Lungs are clear to auscultation no wheezes or crackles normal respiratory effort. Abdomen: Soft nontender no rebound or guarding no liver spleen enlargement no appreciable hernias Extremities: Full range of motion no appreciable weakness no cyanosis or edema. Neurologic: Grossly intact. Objective Labs Result Diagrams: 05/23/22 18:19 05/23/22 18:19 Labs: Laboratory Results - last 24 hr 05/23/22 05/23/22 05/23/22 18:19 18:19 18:19 WBC 8.6 RBC 4.28 Hgb 13.4 Hct 39.2 MCV 91.7 MCH 31.2 MCHC 34.1 RDW 15.5 H Plt Count 219 Neut % (Auto) 62.3 Lymph % (Auto) 26.0 [place] % (Auto) 8.8 Eos % (Auto) 2.3 Baso % (Auto) 0.6 Neut # (Auto) 5400 Lymph # (Auto) 2200 [place] # (Auto) 800 Eos # (Auto) 200 Baso # (Auto) 100 Sodium 137 Potassium 4.7 Chloride 103 Carbon Dioxide 28 BUN 12 Creatinine 0.70 Estimated GFR > 60 BUN/Creatinine Ratio 17.1 Glucose 95 Calcium 9.1 Total Bilirubin 1.3 AST 31 ALT 14 Alkaline Phosphatase 99 Total Creatine Kinase 39 CK-MB (CK-2) TNP CK-MB (CK-2) Rel Index TNP Troponin I < 0.012 NT-Pro-B Natriuret Pep 471 H Total Protein 6.9 Albumin 4.0 Globulin 2.9 Albumin/Globulin Ratio 1.4 Lipase 108 Procalcitonin 0.04 SARS-CoV-2 (PCR) 05/23/22 05/23/22 05/24/22 20:35 21:47 02:50 WBC RBC Hgb Hct MCV MCH MCHC RDW Plt Count Neut % (Auto) Lymph % (Auto) [place] % (Auto) Eos % (Auto) Baso % (Auto) Neut # (Auto) Lymph # (Auto) [place] # (Auto) Eos # (Auto) Baso # (Auto) Sodium Potassium Chloride Carbon Dioxide BUN Creatinine Estimated GFR BUN/Creatinine Ratio Glucose Calcium Total Bilirubin AST ALT Alkaline Phosphatase Total Creatine Kinase 41 CK-MB (CK-2) TNP CK-MB (CK-2) Rel Index TNP Troponin I 0.033 0.045 H NT-Pro-B Natriuret Pep Total Protein Albumin Globulin Albumin/Globulin Ratio Lipase Procalcitonin SARS-CoV-2 (PCR) Negative Assessment & Plan Assessment and plan (1) HTN (hypertension): Qualifiers: Hypertension type: unspecified Qualified Code(s): I10 - Essential (primary) hypertension Status: Acute (2) CAD (coronary artery disease): Status: Acute (3) Chest pain: Status: Acute Plan Chest pain Coronary artery disease Hypertensive urgency Type 2 myocardial infarction Diabetes type 2 86-year-old female who is admitted to the hospital for evaluation after significant elevation of blood pressure and chest pressure. Patient recently had a normal cardiac evaluation. I think patient's cardiac enzyme is mildly elevated due to her significant elevation of her blood pressure consistent more with a troponin leak and a type 2 myocardial infarction and underlying coronary artery disease. Patient has had no further pain since improvement of her blood pressure. Discussed with patient further treatment of her blood pressure and monitoring of her heart. Since she has recently met with her emergency veterinary technician and is on appropriate medication and I think her troponins are mildly elevated because of her significant blood pressure and this is not underlying coronary artery disease we need blood better blood pressure management. Which we have done so far. Will do 1 more set of cardiac enzymes to make sure that the her cardiac troponin is not elevating significantly. Her EKG shows no significant changes. We will go ahead and add in lisinopril to her current blood pressure medication regiment which is artery help stabilize her blood pressure improved them significantly and at that point if her cardiac enzymes are trending down will go ahead have her follow-up with her regular doctor and her emergency veterinary technician here in the next week or so Time Spent With Patient Critical Care time: I spent a total of [] minutes of critical care time on this patient's care today; this time is exclusive of procedural time. Quality VTE Deep Vein Thrombosis/Pulmonary Embolism Present on Admission: No
[2022-05-24 09:11] LABS: Creatine Kinase 42 U/L (30-135)
[2022-05-24 09:38] VITALS: BP 149/50
[2022-05-24] MEDS: carvediloL 12.5 MG TABLET PO (09:38)
--- NOTE | 2022-05-24 11:14 | PC.NURSE ---
Pt IV has been removed and son is at the bedside. Tele has been removed. Went over d/c instructions with Pt and family member-discussed d/c meds, time of last dose, reviewed stroke education, discussed getting up slowly from bed or chair and checking blood pressure several times throughout the day since she is starting Lisinopril. Discussed some of the potential side effects and Karen Pharmacist will be coming up to provide Pt education as well. Pt already has a follow up appointment scheduled with Dr. Esteves on the . Pt and son denied further questions and she will be taken out via w/c by VIDEOTAPE RECORDING ENGINEER to POV with son and all belongings.
--- NOTE | 2022-05-24 12:13 | CM.DANOTE ---
Patient is an 86 yo female who was admitted on 05/23/22 for High BP and Chest Pain. Pt has [facility] and [facility] [employer] and her PCP is Dr. Shannon Ribera and now Dr. Esteves. EMR was reviewed. Per MD, pt has remained stable this morning and pending trops pt can d/c home later today. Per RN, pt's labs stable and discharge instructions given and son was present and provided transport home with no concerns or needs at this time. Plan: Patient discharged home via son POV and outpt f/u appointment already scheduled for Dr. Esteves. No SW needs at this time. ARMINDA Guo Discharge Planning/Care Management CM Discharge Assessment Start: 05/24/22 12:12 Freq: Status: Active Protocol: Document 05/24/22 12:12 BF (Rec: 05/24/22 12:13 BF [id number]) Discharge Planning Assessment Assigned Government Property Inspector ARMINDA Samuel DPOA/Assigned Designee Name spouse Advance Directives? No Advance Directives on File No History Provided By Patient,Family Member,Medical Record Has Patient been admitted in last 30 No days? Prior Living Arrangements House Household Members children Type of transporation used prior to Relies on Others admit Independent with ADL's Yes Is patient alert and oriented? Yes Caregiver for Another No Discharge Plan Home Transportation Arrangement son to provide transport home Referrals Initiated None needed Whiteboard Updated in Patient Room with Yes name and ext. # of Government Property Inspector Review Status In Process Please Provide Date Initial DC 05/24/22 Assessment Was Performed Next Review Type Continued Stay Review
== END 2022-05-24 11:26 | disposition home or self-care (01) ==
LOC: ED 21:59 → AC 22:44
PROVIDERS: Admitting Provider Family Medicine; Emergency Provider Emergency Medicine; PCP Student in an Organized Health Care Education/Training Program; Referring Provider Emergency Medicine; Visit Provider Family Medicine
DX: R07.9 Chest pain, unspecified (principal); I10 Essential (primary) hypertension; I25.10 Atherosclerotic heart disease of native coronary artery without angina pectoris; E78.5 Hyperlipidemia, unspecified; Z95.1 Presence of aortocoronary bypass graft; R77.8 Other specified abnormalities of plasma proteins; E11.9 Type 2 diabetes mellitus without complications; Z79.84 Long term (current) use of oral hypoglycemic drugs; Z20.822 Contact with and (suspected) exposure to COVID-19
CPT/HCPCS: 36415; 71045; 80053; 82550; 82962; 83690; 83880; 84145; 84484; 85025; 87635; 93005; 93010; 96360; 96361; 99217; 99219; 99284; C9803; G0378

== ENCOUNTER 2022-05-27 21:14 | Emergency (ER) | payer MEDICARE, OTHER, SELFPAY ==
[2022-05-23 22:48] VITALS: BMI 26.5
[2022-05-27 21:18] VITALS: BP 229/106; PULSE 67; RESP 16; TEMP 36.7; O2SAT 97; BMI 26.0
--- NOTE | 2022-05-27 21:28 | DI.RAD.S_ITS ---
PROCEDURE: XR CHEST 1V INDICATIONS: chest pain TECHNIQUE: One view of the chest was acquired. COMPARISON: [facility], CR, XR CHEST 1V, 05/23/2022, 18:22. FINDINGS: Surgical changes and devices: Postsurgical changes redemonstrated in the mediastinum. Lungs and pleura: Lungs are clear without acute consolidation. No pleural effusions or pneumothorax. Mediastinum: Mediastinal contours appear normal. Heart size is normal. Bones and chest wall: No suspicious bony lesions. Overlying soft tissues appear unremarkable. IMPRESSION: 1. No acute cardiopulmonary disease. Dictated by: Francisco Carbajal M.D. on 05/28/2022 at 0:06 Approved by: Francisco Carbajal M.D. on 05/28/2022 at 0:11
[2022-05-27 22:28] LABS: Add Manual Diff / Slide Review NO; Basophils Absolute Auto 100 /uL (0-100); Basophils Percent Auto 0.7 % (0-2); Eosinophils Absolute Auto 300 /uL (0-450); Hematocrit 40.1 % (36-46); Hemoglobin 13.3 g/dL (12.0-16.0); Lymphocytes Absolute Auto 2800 /uL (1100-4500); Lymphocytes Percent Auto 31.5 % (25-40); Mean Corpuscular HGB Conc 33.2 % (30-36); Mean Corpuscular Hemoglobin 30.9 PG (26-34); Mean Corpuscular Volume 93.3 fL (80-100); Monocytes Absolute Auto 900 /uL (0-900); Monocytes Percent Auto 10.2 % (3-14); Neutrophils Absolute Auto 4900 /uL (1500-7000); Neutrophils Percent Auto 54.6 % (50-75); Platelet Count 233 X10^3/uL (150-400); Red Cell Distribution Width 15.1 % (11.6-14.8); White Blood Cell Count 8.9 X10^3/uL (4.5-11.0)
[2022-05-27 22:30] VITALS: BP 199/92; PULSE 62; RESP 20; O2SAT 99
[2022-05-27 22:36] LABS: Alanine Aminotransferase 14 IU/L (<35); Albumin 3.9 g/dL (3.5-5.0); Albumin Globulin Ratio 1.4 (1.0-2.8); Alkaline Phosphatase 98 U/L (38-126); Aspartate Aminotransferase 34 IU/L (14-36); BUN Creatinine Ratio 16.7 (6-22); Bilirubin Total 1.2 mg/dL (0.2-1.3); Blood Urea Nitrogen 12 mg/dL (7-17); Calcium 8.7 mg/dL (8.4-10.2); Carbon Dioxide 25 mmol/L (22-32); Chloride 101 mmol/L (98-107); Creatine Kinase 39 U/L (30-135); Estimated Glomerular Filt Rate > 60 mL/min (>60); Globulin 2.8 g/dL (1.7-4.1); Glucose 106 mg/dL (80-110); Lipase 152 U/L (23-300); Magnesium 1.5 mg/dL (1.6-2.3); Potassium 4.1 mmol/L (3.4-5.1); Sodium 134 mmol/L (137-145); Total Protein 6.7 g/dL (6.3-8.2)
[2022-05-27 22:58] LABS: HEMOLYSIS 33 (0-50); Troponin I < 0.012 ng/mL (0.01-0.034)
[2022-05-27 23:00] VITALS: BP 188/81; PULSE 65; RESP 18; O2SAT 99
--- NOTE | 2022-05-28 02:01 | ED.HA ---
HPI - Headache General Chief Complaint: Headache Stated Complaint: high BP and severe headache Time Seen by Provider: 05/28/22 02:01 Mode of arrival: Wheelchair History of Present Illness HPI Narrative: 86-year-old woman with history of coronary artery disease post CABG, hypertension, hyperlipidemia, hypothyroidism with recent blood pressure issues and hospital admission for elevated blood pressure with chest tightness on May 23 and presents complaining of elevated blood pressures. Her shoe patternmaker, Dr Shannon recently performed a stress test (interpreted as low risk) as part of routine follow-up and apparently diagnosed carotid artery stenosis and workup is ongoing. Without hospitalization she had a small increase in her troponin that was felt to be secondary to blood pressure/troponin leak rather than true ischemic injury. Current blood pressure medications include lisinopril 20 mg twice a day, Carvedilol 12.5 mg b.i.d. Related Data Home Medications Medication Instructions Recorded Confirmed ACETAMINOPHEN (TYLENOL EXTRA 1,500 mg PO Q4HP PRN Pain (Scale 09/15/12 05/23/22 STRENGTH) Score 4-6) ##0 aspirin 81 mg tablet,delayed 81 mg PO DAILY 04/05/22 05/23/22 release (Adult Low Dose Aspirin) atorvastatin 40 mg tablet 40 mg PO BEDTIME 04/05/22 05/23/22 cholecalciferol (vitamin D3) 50 50 mcg PO DAILY 04/05/22 05/23/22 mcg (2,000 unit) capsule clobetasol 0.05 % topical cream 1 applic topical DAILY 04/05/22 05/23/22 clopidogrel 75 mg tablet (Plavix) 75 mg PO DAILY 04/05/22 05/23/22 gabapentin 400 mg capsule 1,200 mg PO BEDTIME 04/05/22 05/23/22 melatonin 5 mg capsule 5 mg PO .PRN PRN Sleep 04/05/22 05/23/22 metformin 500 mg tablet 500 mg PO DAILY 04/05/22 05/23/22 nitroglycerin 0.4 mg sublingual 0.4 mg sublingual Q5M PRN Angina 04/05/22 05/23/22 tablet omeprazole 40 mg capsule,delayed 40 mg PO DAILY 04/05/22 05/23/22 release carvedilol 12.5 mg tablet 12.5 mg PO BID 05/23/22 05/23/22 levothyroxine 88 mcg tablet 88 mcg PO DAILY 05/23/22 05/23/22 Previous Rx's Medication Instructions Recorded lisinopril 20 mg tablet 20 mg PO BID #60 tabs 05/24/22 Allergies Allergy/AdvReac Type Severity Reaction Status Date / Time No Known Drug Allergies Allergy Verified 05/27/22 21:18 Patient History Medical History CAD (coronary artery disease) Diabetes Facet arthropathy, lumbar HTN (hypertension) Hypothyroidism Scoliosis (and kyphoscoliosis), idiopathic Surgical History S/P CABG x 4 Family History Mother Emphysema lung Grandfather Lymphoma Heart attack Social History household members: children Smoking Status: Former smoker alcohol intake: current Smoking Status: Former smoker tobacco type: cigarettes alcohol intake frequency: 0-2 drinks per day Substance Use Type: does not use Exam Initial Vital Signs Initial Vital Signs: Vital Signs Temperature 98.0 F 05/27/22 21:18 Pulse Rate 67 05/27/22 21:18 Respiratory Rate 16 05/27/22 21:18 Blood Pressure 229/106 H 05/27/22 21:18 Pulse Oximetry 97 05/27/22 21:18 Oxygen Delivery Method 05/27/22 21:18 Course Orders Ordered: ED Orders 05/27/22 21:28 XR chest 1V Stat EKG-12 Lead Stat 05/27/22 22:17 Complete Blood Count AUTO DIFF Stat Comprehensive Metabolic Panel Stat Lipase Stat Magnesium Stat Troponin & CK Cardiac Panel Stat Vital Signs Vital signs: Vital Signs - 8 hr 05/27/22 21:18 05/27/22 22:30 05/27/22 23:00 Temperature 98.0 F Pulse Rate 67 62 65 Respiratory Rate 16 20 18 Blood Pressure 229/106 H 199/92 H 188/81 H Pulse Oximetry 97 99 99 Oxygen Delivery Method Room Air Room Air Room Air MDM - Headache Lab Data Result diagrams: 05/27/22 22:17 05/27/22 22:17 Labs: Lab Results 05/27/22 05/27/22 Range/Units 22:17 22:17 WBC 8.9 (4.5-11.0) X10^3/uL RBC 4.30 (4.0-5.2) X10^6/uL Hgb 13.3 (12.0-16.0) g/dL Hct 40.1 (36-46) % MCV 93.3 (80-100) fL MCH 30.9 (26-34) PG MCHC 33.2 (30-36) % RDW 15.1 H (11.6-14.8) % Plt Count 233 (150-400) X10^3/uL Neut % (Auto) 54.6 (50-75) % Lymph % (Auto) 31.5 (25-40) % Troup % (Auto) 10.2 (3-14) % Eos % (Auto) 3.0 (2-4) % Baso % (Auto) 0.7 (0-2) % Neut # (Auto) 4900 (4162-5522) /uL Lymph # (Auto) 2800 (0010-8477) /uL Troup # (Auto) 900 (0-900) /uL Eos # (Auto) 300 (0-450) /uL Baso # (Auto) 100 (0-100) /uL Sodium 134 L (137-145) mmol/L Potassium 4.1 (3.4-5.1) mmol/L Chloride 101 (98-107) mmol/L Carbon Dioxide 25 (22-32) mmol/L BUN 12 (7-17) mg/dL Creatinine 0.72 (0.52-1.04) mg/dL Estimated GFR > 60 (>60) mL/min BUN/Creatinine Ratio 16.7 (6-22) Glucose 106 (80-110) mg/dL Calcium 8.7 (8.4-10.2) mg/dL Magnesium 1.5 L (1.6-2.3) mg/dL Total Bilirubin 1.2 (0.2-1.3) mg/dL AST 34 (14-36) IU/L ALT 14 (<35) IU/L Alkaline Phosphatase 98 (38-126) U/L Total Creatine Kinase 39 (30-135) U/L CK-MB (CK-2) TNP CK-MB (CK-2) Rel Index TNP Troponin I < 0.012 (0.01-0.034) ng/mL Total Protein 6.7 (6.3-8.2) g/dL Albumin 3.9 (3.5-5.0) g/dL Globulin 2.8 (1.7-4.1) g/dL Albumin/Globulin Ratio 1.4 (1.0-2.8) Lipase 152 (23-300) U/L Discharge Plan Departure Prescriptions: No Action ACETAMINOPHEN (TYLENOL EXTRA STRENGTH) 1,500 mg PO Q4HP PRN (Reason: Pain (Scale Score 4-6)) Qty: 0 levothyroxine 88 mcg tablet 88 mcg PO DAILY Label Comments: take 1 tablet by mouth once daily carvedilol 12.5 mg Tablet 12.5 mg PO BID Rx Instructions: must administer with a meal/food lisinopril 20 mg Tablet 20 mg PO BID Qty: 60 0RF aspirin [Adult Low Dose Aspirin] 81 mg tablet,delayed release (DR/EC) 81 mg PO DAILY atorvastatin 40 mg tablet 40 mg PO BEDTIME cholecalciferol (vitamin D3) 50 mcg (2,000 unit) capsule 50 mcg PO DAILY clobetasol 0.05 % cream 1 applic topical DAILY clopidogrel [Plavix] 75 mg tablet 75 mg PO DAILY gabapentin 400 mg capsule 1,200 mg PO BEDTIME melatonin 5 mg capsule 5 mg PO .PRN PRN (Reason: Sleep) metformin 500 mg tablet 500 mg PO DAILY nitroglycerin 0.4 mg tablet, sublingual 0.4 mg sublingual Q5M PRN (Reason: Angina) Rx Instructions: do not exceed 3 doses per episode omeprazole 40 mg capsule,delayed release(DR/EC) 40 mg PO DAILY Referrals: Shannon Ribera MD [Primary Care Provider] -
--- NOTE | 2022-05-28 02:47 | PC.NURSE ---
Pt and pt son asking for pt to be disconnecting and have her IV taken out so they can go to another hospital. Pt IV DC'd and pt disconnected from VS monitors, pt refused DC vitals. Pt left ER in wheelchair in the care of her son.
== END 2022-05-28 02:45 | disposition left against medical advice (07) ==
PROVIDERS: Emergency Provider Emergency Medicine; PCP Student in an Organized Health Care Education/Training Program
DX: R07.9 Chest pain, unspecified (principal)
CPT/HCPCS: 71045; 80053; 82550; 83690; 83735; 84484; 85025; 93005; 93010; 99282

== ENCOUNTER 2024-01-10 07:44 | Outpatient (CLI) | payer OTHER, SELFPAY ==
[2022-05-23 22:48] VITALS: BMI 26.5
[2023-12-27 10:34] VITALS: BMI 26.5
[2024-01-10] VITALS (11 sets, daily range): BP systolic 141–169; BP diastolic 64–86; PULSE 3–63; RESP 15–20; TEMP 36.1; O2SAT 93–97
--- NOTE | 2024-01-10 08:45 | DI.RAD.S_ITS ---
PROCEDURE: PAIN L/S FACET INJ/BLK 1ST MAHENDRA INDICATIONS: SPONDYLOSIS COMPARISON: [facility], , PAIN L/S FACET INJ/BLK 1ST MAHENDRA, 04/27/2022, 13:29. FINDINGS: Fluoroscopic spot filming was performed to verify placement of spinal needles at the bilateral L4, L5 and S1 level(s), as labeled on the films. Appropriate location(s) of the needle tip(s) was confirmed by injection of iodinated contrast. IMPRESSION: Fluoroscopic guidance Approved by: Stephane Campbell M.D. on 01/10/2024 at 19:18
[2024-01-10] MEDS: MIDAZOLAM 2 MG/2 ML VIAL 1 MG IV ×2 (09:16→09:26)
[2024-01-10] MEDS: iopamidoL 15 ML VIAL 3 ML INJ (09:24)
[2024-01-10] MEDS: LIDOCAINE 1% 20 ML 5 ML INJ (09:24)
[2024-01-10] MEDS: BUPIVACAINE 0.5% (PF) 10 ML VIAL 5 ML INJ (09:25)
--- NOTE | 2024-01-10 09:39 | PM.PROC.IR.1 ---
Date/Time/Diagnoses Date of procedure: 01/10/24 Time of procedure: 09:39 Pre-procedure diagnosis: 1. FACET ARTHROPATHY Post-procedure diagnosis: same Procedure Notes Procedure: 1. BILATERAL- L4, L5 and S1 DIAGNOSTIC MB BLOCKS with LA Anesthetic Indications: Mercedes is referred by GEOFFREY George for treatment of Bilateral Axial LBP. Physician: Molina Schroeder Total Fluoroscopy time (seconds): 17 Total sedation minutes: 19 Complications: none Procedure in detail & Post-procedure care: DESCRIPTION OF PROCEDURE Fluoroscopically guided, contrast-controlled bilateral L4, L5 and S1 medial branch blocks with 0.5cc of 0.5% Marcaine. Following review of allergy and review of potential side effects and complications, including, but not necessarily limited to, infection, allergic reaction, local tissue breakdown, nerve injury, paralysis, stroke and possible , the patient indicated that the patient understood and agreed to proceed. An informed consent document was signed by the patient, witnessed by a nurse, and placed in the patient's chart. After review of previous anaesthesic history and IV conscious sedation the patient was deemed safe to proceed with today's procedure with IV conscious sedation as ASA class II designation. Safety time-out was performed to confirm patient ID, procedure to be performed and site of procedure. IV sedation was accomplished with a combination of 2mg of Versed was administered by the RN after DO order, titrated to patient comfort during the course of the procedure while the patient remained responsive to all verbal commands In the prone position, following sterile prep and drape of the lumbar region, the right L4, L5 and S1 anatomical location of the medial branch of the dorsal ramus was identified fluoroscopically. Subsequently an anesthetic skin wheal using 1% lidocaine solution was initiated at each of the anatomical spots. Subsequently then a 22-gauge 3.5-inch spinal needle was atraumatically introduced and advanced under fluoroscopic guidance at each of the corresponding sites at the right L4, L5 and S1 MB. After negative aspiration, 0.2cc of Isovue 200 was injected, confirming placement without vascular or intrathecal uptake. Subsequently then 0.5cc of 0.5% Marcaine solution was injected at each of the corresponding sites at the right L4, L5 and S1 medial branch locations. The identical procedure was replicated on the left. The patient tolerated the procedure well without signs or symptoms of complications prior to transfer to the recovery area continued monitoring without incident. Post-procedure, the patient was monitored initiating provocative activities to measure the amount of relief from block of the facetogenic pain. The patient reported a VAS of 7 prior to the procedure and a post-procedure VAS of 1. It has been a pleasure to assist in the diagnostic and therapeutic care of your patient. POST OP INSTRUCTIONS The patient was provided with a Pain Log to complete over the next several hours and subsequent days prior to the patient's follow up with the ordering physician. If the patient has pest control service representative relief to the solution applied, then they may be a candidate for medial branch rhizotomy. The patient is aware, was provided, once again, with a Pain Log and will follow up with the referring physician for review and clinical correlation
== END 2024-01-10 10:15 | disposition home or self-care (01) ==
LOC: RAD 07:45
PROVIDERS: PCP Nurse Practitioner; Referring Provider Physical Medicine & Rehabilitation; Visit Provider Physical Medicine & Rehabilitation
DX: M47.816 Spondylosis without myelopathy or radiculopathy, lumbar region (principal); M47.817 Spondylosis without myelopathy or radiculopathy, lumbosacral region
CPT/HCPCS: 64493; 64494; 99152; J2250

== ENCOUNTER 2024-03-20 10:06 | Outpatient (CLI) | payer OTHER, SELFPAY ==
[2023-12-27 10:34] VITALS: BMI 26.5
[2024-03-20] VITALS (11 sets, daily range): BP systolic 145–199; BP diastolic 67–94; PULSE 58–65; RESP 14–23; TEMP 36.3; O2SAT 92–98
--- NOTE | 2024-03-20 10:45 | DI.RAD.S_ITS ---
PROCEDURE: PAIN L/S FACET INJ/BLK 1ST MAHENDRA INDICATIONS: Bilateral L4-L5 and S1 medial branch block SA COMPARISON: [facility], XA, PAIN L/S FACET INJ/BLK 1ST MAHENDRA, 01/10/2024, 10:20. FINDINGS: Fluoroscopic spot filming was performed to verify placement of spinal needles at the bilateral L4, L5, and S1 level(s), as labeled on the films. Appropriate location(s) of the needle tip(s) was confirmed by injection of iodinated contrast. IMPRESSION: Intraoperative guidance provided. Dictated by: Deep Flowers M.D. on 03/20/2024 at 17:36 Approved by: Deep Flowers M.D. on 03/20/2024 at 17:39
[2024-03-20] MEDS: MIDAZOLAM 2 MG/2 ML VIAL IV (10:58)
[2024-03-20] MEDS: LIDOCAINE 2% INJ MDV 20ML 5 ML INJ (11:08)
[2024-03-20] MEDS: LIDOCAINE 1% 20 ML 5 ML INJ (11:08)
[2024-03-20] MEDS: iopamidoL 15 ML VIAL 3 ML INJ (11:08)
--- NOTE | 2024-03-20 11:19 | PM.PROC.IR.1 ---
Date/Time/Diagnoses Date of procedure: 03/20/24 Time of procedure: 11:20 Pre-procedure diagnosis: 1. FACET ARTHROPATHY Post-procedure diagnosis: same Procedure Notes Procedure: 1. BILATERAL- L4, L5 and S1 DIAGNOSTIC MB BLOCKS with SA Anesthetic Indications: Mercedes is referred by for treatment of Bilateral Axial LBP. Physician: Molina Schroeder Total Fluoroscopy time (seconds): 12 Total sedation minutes: 17 Complications: none Procedure in detail & Post-procedure care: DESCRIPTION OF PROCEDURE Fluoroscopically guided, contrast-controlled bilateral L4, L5 and S1 medial branch blocks with 0.5cc of 2% Lidocaine. Following review of allergy and review of potential side effects and complications, including, but not necessarily limited to, infection, allergic reaction, local tissue breakdown, nerve injury, paralysis, stroke and possible , the patient indicated that the patient understood and agreed to proceed. An informed consent document was signed by the patient, witnessed by a nurse, and placed in the patient's chart. After review of previous anaesthesic history and IV conscious sedation the patient was deemed safe to proceed with today's procedure with IV conscious sedation as ASA class II designation. Safety time-out was performed to confirm patient ID, procedure to be performed and site of procedure. IV sedation was accomplished with a combination of 3mg of Versed was administered by the RN after DO order, titrated to patient comfort during the course of the procedure while the patient remained responsive to all verbal commands In the prone position, following sterile prep and drape of the lumbar region, the right L4, L5 and S1 anatomical location of the medial branch of the dorsal ramus was identified fluoroscopically. Subsequently an anesthetic skin wheal using 1% lidocaine solution was initiated at each of the anatomical spots. Subsequently then a 22-gauge 3.5-inch spinal needle was atraumatically introduced and advanced under fluoroscopic guidance at each of the corresponding sites at the right L4, L5 and S1 MB. After negative aspiration, 0.2cc of Isovue 200 was injected, confirming placement without vascular or intrathecal uptake. Subsequently then 0.5cc of 2% Lidocaine solution was injected at each of the corresponding sites at the right L4, L5 and S1 medial branch locations. The identical procedure was replicated on the left. The patient tolerated the procedure well without signs or symptoms of complications prior to transfer to the recovery area continued monitoring without incident. Post-procedure, the patient was monitored initiating provocative activities to measure the amount of relief from block of the facetogenic pain. The patient reported a VAS of 7 prior to the procedure and a post-procedure VAS of 1. It has been a pleasure to assist in the diagnostic and therapeutic care of your patient. POST OP INSTRUCTIONS The patient was provided with a Pain Log to complete over the next several hours and subsequent days prior to the patient's follow up with the ordering physician. If the patient has union representative relief to the solution applied, then they may be a candidate for medial branch rhizotomy. The patient is aware, was provided, once again, with a Pain Log and will follow up with the referring physician for review and clinical correlation
--- NOTE | 2024-03-20 11:47 | PC.NURSE ---
Patient has no known history of AFib. Patient denies chest pain, SOB, H/A or heart palpation. Spoke with son Sawyer he is unaware of her having a history of Afib. Informed him that she is currently in the A fib rhythm. Dr Schroeder is aware and has no new orders and to f/u with her PCP or accounting auditor. Son notified of Dr Acosta instructions and states I will f/u with her doctors about this. Rhythm strip printed and given to son.
--- NOTE | 2024-03-20 13:05 | PC.NURSE ---
1120- Patient returned to room, mostly sleepy needed loud voice and verbal stimulation to wake up. 2 Person max assist with transfer from w/c to chair. Patient denies pain at this time. 1130-Patient is snoring sitting up in chair, oxygen sats 89-90% RA, attempted chin tilted with no response. Patient did not respond to verbal direction to take deep breath needed sternal rub. Patient awaken and took deep breaths stats back up into 90's on RA. 1140- Patient is drowsy, alert drinking hot na. and eating cookies. See note when spoke with son in regards to A-fib. 1205- Patient assisted into w/c. She is at baseline mobility prior to procedure. This RN and Isabel RN assisted patient into bathroom to void urine. Patient denies any pain or discomfort at this time.
--- NOTE | 2024-03-21 12:56 | PC.NURSE ---
Post-procedure call: Spoke with patient and her son (POA). She reports that it still hurts. Encouraged to contact the clinic with questions and concerns and to schedule her follow up appointment.
== END 2024-03-20 12:10 | disposition home or self-care (01) ==
PROVIDERS: PCP Nurse Practitioner; Referring Provider Physical Medicine & Rehabilitation; Visit Provider Physical Medicine & Rehabilitation
DX: M47.816 Spondylosis without myelopathy or radiculopathy, lumbar region (principal); M47.817 Spondylosis without myelopathy or radiculopathy, lumbosacral region
CPT/HCPCS: 64493; 64494; 64495; 99152; J2250

== ENCOUNTER 2024-07-24 10:23 | Outpatient (CLI) | payer OTHER, SELFPAY ==
[2023-12-27 10:34] VITALS: BMI 26.5
[2024-07-24] VITALS (14 sets, daily range): BP systolic 123–161; BP diastolic 58–73; PULSE 63–70; RESP 15–20; TEMP 36.2; O2SAT 91–96
[2024-07-24] MEDS: MIDAZOLAM 2 MG/2 ML VIAL 1 MG IV ×2 (10:59→11:23)
--- NOTE | 2024-07-24 11:00 | DI.RAD.S_ITS ---
PROCEDURE: PAIN L/S MED/LAT N RFA BILAT INDICATIONS: Bilateral L4-L5 and S1 medial branch RFA COMPARISON: None. FINDINGS: Fluoroscopic spot filming was performed to verify placement of spinal needles at the L4-5 and L5-S1 level(s), as labeled on the films. Appropriate location(s) of the needle tip(s) was confirmed by injection of iodinated contrast. IMPRESSION: Fluoroscopic guidance utilized for a medial branch RFA. Dictated by: Michael Monique M.D. on 07/24/2024 at 14:40 Approved by: Michael Monique M.D. on 07/24/2024 at 14:40
[2024-07-24] MEDS: BUPIVACAINE 0.5% (PF) 10 ML VIAL 5 ML INJ (11:08)
[2024-07-24] MEDS: LIDOCAINE 1% (PF) 5 ML 20 ML INJ (11:09)
--- NOTE | 2024-07-24 11:47 | P.PCN_ITS ---
Date/Time/Diagnoses Date of procedure: 07/24/24 Time of procedure: 11:47 Pre-procedure diagnosis: 1. RECALCITRANT FACET ARTHROPATHY Post-procedure diagnosis: same Procedure Notes Procedure: 1. BILATERAL L4 AND L5 MEDIAL BRANCH RADIOFREQUENCY NEUROTOMY AND S1 DORSAL RAMUS BRANCH RADIOFREQUENCY NEUROTOMY Indications: Mercedes is referred by GEOFFREY George for treatment of facet arthropathy. Physician: Molina Schroeder Total Fluoroscopy time (seconds): 27 Total sedation minutes: 36 Complications: none Procedure in detail & Post-procedure care: DESCRIPTION OF PROCEDURE Bilateral L4 and L5 medial branch radiofrequency neurotomy and bilateral S1 dorsal ramus radiofrequency neurotomy under fluoroscopy with conscious sedation. The patient is well known to this clinic having undergone previous facet injections with good but temporary relief. The patient has experienced appropriate, concordant relief with previous facet and median branch blocks but the patient's pain has been recalcitrant to further conservative measures. Therefore, based upon the patient's relief and persistent symptoms, the patient is considered an appropriate candidate for facet rhizotomy. All of the patient's questions regarding the risks versus benefits of the procedure, including, but not limited to, bleeding, infection, temporary as well as lasting nerve injury, paralysis, stroke, and , as well treatment alternatives were answered to satisfaction. After obtaining informed consent, denial of pertinent drug allergies, as well as being made aware of the potential risks of bleeding, infection, spinal cord trauma, paralysis, temporary and permanent nerve damage, seizure, stroke, and possible , the patient was brought to the fluoroscopy suite and positioned prone on the fluoroscopy table. The lumbar region was prepped in usual sterile fashion and covered with a fenestrated drape in the usual sterile fashion. Appropriate monitors applied including pulse oximeter, pulse, and blood pressure for regular monitoring throughout the procedure. After review of previous anaesthesic history and IV conscious sedation the patient was deemed safe to proceed with today's procedure with IV conscious sedation as ASA class II designation. Safety time-out was performed to confirm patient ID, procedure to be performed and site of procedure. IV sedation was accomplished with a combination of 2mg of Versed administered by the RN after DO order, titrated to patient comfort during the course of the procedure while the patient remained responsive to all verbal commands. After local infiltration using 1% lidocaine, under fluoroscopic guidance, a 10- cm RF insulated needle with a 10-mm active tip was positioned parallel to the junction of the right sacral ala and the superior articulating process where the S1 dorsal ramus resides. Needle placement was confirmed with motor stimulation of .5v on the right which produced local stimulation without radicular component. The stimulation was then increased to 2v with, once again, only local multifidus stimulation without radicular component. The needle was then removed and the identical procedure was performed along the length of the right L5 medial branch with motor stimulation at .7v on the right. The identical procedure was once again performed along the length of the right L4 medial branch with motor stimulation of .5v on the right. The medial branches were then anesthetised with 0.5% Marcaine. This was then followed by two discreet lesions performed at 80 degrees Celsius for 90 seconds each. The identical procedure was repeated on the left. The patient tolerated the procedure well without signs or symptoms of complications prior to transfer to the recovery area continued monitoring without incident. The patient was then transferred to the recovery area where they were observed for an appropriate period of time after the injection. The patient reported a VAS score of 7 prior to the procedure and a post-procedure VAS of 1. POST OP INSTRUCTIONS The patient was provided a Pain Log to continue to record the patient's response to the target-specific procedure prior to the patient's follow-up visit with the referring physician. Additionally, specific post-injection care instructions and a contact number to our office were provided if concerns arise regarding possible complications associated with the procedure are suspected.
--- NOTE | 2024-07-24 12:02 | PC.NURSE ---
Patients left upper injection site had serosang drainage, reinforced with new band-aid and pressure applied for 2 min. at D/C no noted new drainage. Son was notified.
== END 2024-07-24 12:02 | disposition home or self-care (01) ==
PROVIDERS: PCP Nurse Practitioner; Referring Provider Physical Medicine & Rehabilitation; Visit Provider Physical Medicine & Rehabilitation
DX: M47.816 Spondylosis without myelopathy or radiculopathy, lumbar region (principal)
CPT/HCPCS: 64635; 64636; 99152; 99153; J2250

== ENCOUNTER → 2024-10-30 09:31 | Outpatient (CLI) | payer OTHER, SELFPAY ==
[2023-12-27 10:34] VITALS: BMI 26.5
--- NOTE | 2024-10-30 09:36 | DI.RAD.S_ITS ---
PROCEDURE: XR LUMBAR SPINE MIN 4V INDICATIONS: BACK PAIN TECHNIQUE: 5 views of the lumbar spine acquired, including oblique views. COMPARISON: [facility], CR, XR LUMBAR SPINE MIN 4V, 04/05/2022, 13:19. FINDINGS: Bones: 5 nonrib-bearing vertebrae are present. There is significant rightward scoliotic curvature with apex at L2. There is unchanged retrolisthesis L2 on L3. Multilevel moderate to severe degenerative disc and foraminal narrowing most severe at L5-S1, L2-3. No vertebral body compression fractures. No suspicious bony lesions. Soft tissues: Overlying bowel gas pattern is normal. No suspicious soft tissue calcifications. IMPRESSION: Overall minimal interval progression of degenerative changes compared to 2021. Dictated by: Kadi Hansen M.D. on 10/30/2024 at 11:05 Approved by: Kadi Hansen M.D. on 10/30/2024 at 11:06
== END ==
PROVIDERS: PCP Nurse Practitioner; Referring Provider Physical Medicine & Rehabilitation; Visit Provider Physical Medicine & Rehabilitation
DX: M47.816 Spondylosis without myelopathy or radiculopathy, lumbar region (principal); M41.20 Other idiopathic scoliosis, site unspecified; M48.061 Spinal stenosis, lumbar region without neurogenic claudication; M48.07 Spinal stenosis, lumbosacral region
CPT/HCPCS: 72110